=== PATIENT | female | born 1950 | race Caucasian/White ===

== ENCOUNTER 2025-01-04 13:21 | Observation (INO) | payer MEDICARE, OTHER ==
[2025-01-04 13:52] LABS: #Basophils 0.06 10x3/uL (0.0-0.2); #Eosinophils 0.35 10x3/uL (0.0-0.7); #Monocytes 0.72 10x3/uL (0.11-0.59); #Neutrophils 6.88 10x3/uL (1.40-6.50); %Basophils 0.6 % (0.0-1.0); %Eosinophils 3.5 % (0.0-10.0); %Lymphocytes 19.9 % (21.0-51.0); %Monocytes 7.2 % (0.0-10.0); %Neutrophils 68.5 % (42.0-75.0); Hematocrit 30.9 % (36.0-47.0); Hemoglobin 10.6 g/dL (12.0-16.0); Mean Corpuscular Hemoglobin 28.3 pg (27.0-31.0); Mean Corpuscular Volume 82.6 fL (78.0-98.0); Platelet Count 185 10x3/uL (130-400); Red Blood Cell (RBC) Count 3.74 mill/uL (4.20-5.40); White Blood Cell (WBC) Count 10.04 10x3/uL (4.8-10.8)
[2025-01-04 14:09] LABS: ALT (SGPT) 31 U/L (Less than 34); AST (SGOT) 36 U/L (11-34); Albumin 3.6 g/dL (3.1-4.5); Alkaline Phosphatase 64 U/L (40-110); Anion Gap 16 mmol/L (10-20); BUN (Urea Nitrogen) 94 mg/dL (9.8-20.1); Bilirubin, Total 0.5 mg/dL (0.3-1.2); Calc. Creatinine Clearance 0 mL/min (70-130); Calcium 9.4 mg/dL (7.8-10.44); Carbon Dioxide 21 mmol/L (23-31); Chloride 106 mmol/L (98-107); Globulin 3.2 g/dL (2.4-3.5); Glucose 123 mg/dL (83-110); Potassium 3.8 mmol/L (3.5-5.1); Sodium 139 mmol/L (136-145)
[2025-01-04] MEDS ORDERED: Melatonin 3 MG TAB PO PRN (18:17)
[2025-01-04] MEDS ORDERED: Glucagon 1 MG/ML KIT IM PRN (18:17)
[2025-01-04] MEDS ORDERED: Dextrose 50% Abboject 50 ML SYRINGE SLOW IVP PRN (18:17)
[2025-01-04] MEDS ORDERED: Acetaminophen 325 MG TAB PO PRN (18:17)
[2025-01-04 19:49] VITALS: BMI 27.1
[2025-01-04] MEDS ORDERED: Senokot S 8.6-50 MG TAB PO PRN (21:00)
[2025-01-04] MEDS: Famotidine 20 MG TAB PO SCH (21:01)
[2025-01-05 04:58] LABS: #Basophils 0.06 10x3/uL (0.0-0.2); #Eosinophils 0.47 10x3/uL (0.0-0.7); #Monocytes 0.93 10x3/uL (0.11-0.59); #Neutrophils 6.49 10x3/uL (1.40-6.50); %Basophils 0.5 % (0.0-1.0); %Eosinophils 4.0 % (0.0-10.0); %Lymphocytes 31.3 % (21.0-51.0); %Monocytes 8.0 % (0.0-10.0); %Neutrophils 55.9 % (42.0-75.0); Hematocrit 30.1 % (36.0-47.0); Hemoglobin 9.9 g/dL (12.0-16.0); Mean Corpuscular Hemoglobin 28.3 pg (27.0-31.0); Mean Corpuscular Volume 86.0 fL (78.0-98.0); Platelet Count 180 10x3/uL (130-400); Red Blood Cell (RBC) Count 3.50 mill/uL (4.20-5.40); White Blood Cell (WBC) Count 11.62 10x3/uL (4.8-10.8)
[2025-01-05 05:25] LABS: Anion Gap 14 mmol/L (10-20); BUN (Urea Nitrogen) 84 mg/dL (9.8-20.1); Calc. Creatinine Clearance 21 mL/min (70-130); Calcium 8.9 mg/dL (7.8-10.44); Carbon Dioxide 20 mmol/L (23-31); Chloride 111 mmol/L (98-107); Glucose 75 mg/dL (83-110); Potassium 3.3 mmol/L (3.5-5.1); Sodium 142 mmol/L (136-145)
[2025-01-05] MEDS: Famotidine 20 MG TAB PO SCH (08:23)
[2025-01-05] MEDS: Enoxaparin 30 MG (0.3 mL) SYRINGE SC SCH (08:23)
[2025-01-05 15:55] VITALS: BP 168/75; TEMP 98.3
== END 2025-01-05 18:52 | disposition home or self-care (01) ==
LOC: ERS 13:21 → OBS 17:43
PROVIDERS: ADMIT Internal Medicine; ATTEND Hospitalist
DX: R55 Syncope and collapse (principal); I13.0 Hypertensive heart and chronic kidney disease with heart failure and stage 1 through stage 4 chronic kidney disease, or unspecified chronic kidney disease; N18.9 Chronic kidney disease, unspecified; I50.30 Unspecified diastolic (congestive) heart failure; E11.22 Type 2 diabetes mellitus with diabetic chronic kidney disease; N18.4 Chronic kidney disease, stage 4 (severe); Z88.8 Allergy status to other drugs, medicaments and biological substances; Z88.0 Allergy status to penicillin; Z88.2 Allergy status to sulfonamides; Z88.5 Allergy status to narcotic agent; Z79.02 Long term (current) use of antithrombotics/antiplatelets; Z79.84 Long term (current) use of oral hypoglycemic drugs; Z79.4 Long term (current) use of insulin; Z79.85 Long-term (current) use of injectable non-insulin antidiabetic drugs; Z79.899 Other long term (current) drug therapy
CPT/HCPCS: 70450; 71045; 72125; 80048; 80053; 82962 ×2; 83880; 84484 ×2; 85025 ×2; 93005; 94760; 99285; J1650; J1815; J7030; 36415; 36416